=== PATIENT | female | born 1990 | race African-American/Black ===

== ENCOUNTER → 2019-11-08 | Outpatient (CLI) | payer OTHER ==
[~2019-11-08] MED LIST: OXYC-325 PO
--- NOTE | 2019-11-08 16:50 | RAD ---
EXAM: Obstetric sonogram. HISTORY: No heart tones. TECHNIQUE: Sonographic imaging of the pelvis was performed. COMPARISON: None. FINDINGS: The uterus measures 8.6 x 5.5 x 7.6 cm. There is an intrauterine gestational sac in expected position and with expected configuration. There is a single pole within the gestational sac measuring 4.4 mm in length. This corresponds with a gestational age of 6 weeks and 1 day. No cardiac activity is seen. The maternal ovaries are unremarkable. There is no pelvic free fluid. IMPRESSION: Single intrauterine fetus with an estimated gestational age based on crown-rump length of 6 weeks and 1 day. No cardiac activity is seen. This may be due to relative early gestational age. However, the crown-rump length is small for the size of the gestational sac. This favors early intrauterine demise/missed miscarriage. If no heart tones have been detected, short-term sonographic follow-up in a few days can be performed for confirmation. Electronically signed by: Sandy Batista MD (11/08/2019 4:47 PM) [facility]
== END | disposition home or self-care (01) ==
LOC: US 16:11
PROVIDERS: ATTEND Obstetrics & Gynecology
DX: O26.891 Other specified pregnancy related conditions, first trimester (principal); O02.81 Inappropriate change in quantitative human chorionic gonadotropin (hCG) in early pregnancy; Z3A.01 Less than 8 weeks gestation of pregnancy
CPT/HCPCS: 76801; 76817

== ENCOUNTER 2019-11-12 06:15 | Day surgery (SDC) | payer OTHER ==
[2019-11-12] MEDS: IV RINGERS,LACTATED 1000ML 1,000 ML IV SCH ×2 (06:56→09:45)
[2019-11-12] MEDS ORDERED: LIDOCAINE 2% PF 5 ML VIAL. ONE (06:57)
[2019-11-12] MEDS ORDERED: PROPOFOL 20 ML IV ONE (06:57)
[2019-11-12] MEDS ORDERED: DEXAMETHASONE SOD PHOS 4 MG/ML VIAL ONE (06:57)
[2019-11-12] MEDS ORDERED: ONDANSETRON PF 4 MG/2 ML VIAL. ONE (06:57)
[2019-11-12] MEDS ORDERED: fentaNYL PF VIAL 100 MCG/2 ML VIAL IV PRN (07:00)
[2019-11-12] MEDS ORDERED: LIDOCAINE 1% PF 2 ML VIAL. ID PRN (07:00)
[2019-11-12] MEDS ORDERED: MORPHINE SULFATE 2 MG/ML VIAL. IV PRN (07:00)
[2019-11-12] MEDS ORDERED: ONDANSETRON PF 4 MG/2 ML VIAL. IV PRN (07:00)
[2019-11-12] MEDS ORDERED: HYDROmorphone 2 MG/ML VIAL IV PRN (07:00)
[2019-11-12] MEDS ORDERED: OXYTOCIN 10 UNIT/ML VIAL. ONE (07:10)
[2019-11-12] MEDS ORDERED: VASOPRESSIN 20 UNIT/ML VIAL. ONE (07:11)
[2019-11-12] MEDS ORDERED: fentaNYL PF VIAL 100 MCG/2 ML VIAL ONE (07:45)
[2019-11-12] MEDS ORDERED: KETOROLAC 30 MG/ML VIAL. ONE (07:56)
[2019-11-12] MEDS ORDERED: SEVOFLURANE 16 TO 30 MINUTES. IH ONE (08:10)
[2019-11-12] MEDS ORDERED: PHENYLEPHRINE in 0.9% NACL PF 1 MG/10 ML SYRINGE. IV ONE (08:39)
[2019-11-12] MEDS ORDERED: SEVOFLURANE 31 TO 60 MINUTES. IH ONE (08:43)
[2019-11-12] MEDS ORDERED: SEVOFLURANE 61 TO 120 MINUTES. IH ONE (08:44)
[2019-11-12] MEDS ORDERED: miSOPROStol 200 MCG TABLET ONE ×2 (08:49→08:51)
[2019-11-12] MEDS ORDERED: miSOPROStol 200 MCG TABLET PR ONE ×2 (08:51)
--- NOTE | 2019-11-12 09:01 | PDOC ---
BRIEF OPERATIVE NOTE Date: Nov 12, 2019 Pre-Op Diagnosis 6 wk MAB Post-Op Diagnosis SAme Procedure Performed Suction D&C Surgeon Dr. Angeles Anesthesia Type: General Blood Loss 150 ml Specimens Obtained POC and blood products Findings POC Complications none Operative Note see dictation IVONNE ANGELES Jr, MD Nov 12, 2019 09:01
--- NOTE | 2019-11-12 09:03 | DISCH ---
DISCHARGE INSTRUCTIONS Condition on Discharge Condition on Discharge: Stable Activity After Discharge Activity Instructions for Disc: Activity as tolerated, Avoid exertion Lifting Instructions after Dis: No heavy lifting Driving Instructions after Dis: Do not drive today Diet after Discharge Diet after Discharge: Regular Contacting the DRAbhinav after DC Call your doctor for: Concerns you may have Follow-Up Follow up with: Dr. Angeles in 1 week. Pt. to remain off all work duties for 1 week. IVONNE ANGELES Jr, MD Nov 12, 2019 09:03
[2019-11-12] MEDS: PROCHLORPERAZINE 10 MG/2 ML VIAL. IV PRN ×2 (09:19→09:37)
[2019-11-12] MEDS: fentaNYL PF VIAL 100 MCG/2 ML VIAL IV PRN ×2 (09:20→09:37)
--- NOTE | 2019-11-12 09:28 | OP ---
DATE OF SURGERY: 11/12/2019 PREOPERATIVE DIAGNOSES: Six week missed . POSTOPERATIVE DIAGNOSIS: Six week missed . PROCEDURE: Suction D and C. SURGEON: Ivonne Angeles MD ANESTHESIA: GETA. ESTIMATED BLOOD LOSS: 150 mL. COMPLICATIONS: None. FINDINGS: Products of conception and blood products. SUMMARY: A 29-year-old 4, para 2, A1 at 6 weeks with missed , counseled on the risks, benefits and expectations of suction D and C and voiced clear understanding to proceed. DESCRIPTION OF PROCEDURE: The patient was taken to surgery suite and placed in dorsal lithotomy position. She was prepped with soapy suds water for prep due to SHELLFISH ALLERGY. After adequate anesthesia, weighted speculum and curved Monica placed vaginally. Anterior lip of the cervix grasped with single tooth tenaculum. The cervix was only able to be dilated up to size #6 Hegar dilators. There was a laceration on the cervix where the single tooth tenaculum was placed on the anterior lip as well as posterior lip of the cervix, which these were repaired with 2-0 Vicryl suture in [id number] manner. A suture was placed at 3 and 9 o'clock position as well to help stabilize the cervix as we proceeded with the curettage, removing tissue and then the suction using modified suction tip due to the narrow cervical canal to remove additional products of conception and blood products. Sharp curettage took place to a fine gritty surface was palpated circumferentially. Suction curette was passed once again. The cervix was once again visualized and was hemostatic. The weighted speculum and curved Monica were removed. The patient tolerated the procedure well and was taken to recovery room in stable condition. Sponge and needle count correct x 3. IVONNE ANGELES MD DR: LYDIA/josé JOB#: [id number] / [id number]
[2019-11-12] MEDS ORDERED: OXYC-325 PO (09:41)
[2019-11-12] MEDS ORDERED: oxyCODONE/APAP 5/325 1 TAB TABLET PO ONE ×2 (10:15)
[2019-11-12 10:35] VITALS: BP 113/68
--- NOTE | 2019-11-15 15:07 | PATHOLOGY ---
[facility] Accession Number: [id number] . 01 Material submitted: . product of conception - PRODUCTS OT CONCEPTION . 01 Clinical history: . Missed . . 02 Diagnosis: Uterine contents, suction D and C: - Products of conception, comprised of immature chorionic villi and segments of decidual tissue showing focal necrosis, acute inflammation, and hemorrhage. (JPM/db; 11/15/2019) [facility] 11/15/2019 1236 Local . 02 Electronically signed: . Néstor Shields MD, Pathologist NPI- [id number] . 01 Gross description: . Received in formalin labeled "Vera Holm, products of conception" is a 31 g, 6.8 x 6.2 x 1.8 cm aggregate of red-brown friable soft tissue fragments. No parts are identified. Informal Waiter/Waitress tissue is submitted in cassettes A1-A3. [place] [place] [facility] 11/14/2019 1118 Local . 02 Pathologist provided ICD-10: O02.1 . 02 CPT . 366364 Specimen Comment: A courtesy copy of this report has been sent to [phone] Specimen Comment: Report sent to Performed at: 01 [facility] [address], [place], [place] [id number] MD Jordy Seals MD Phone: [phone] Performed at: 02 [facility] [address], [place] [id number] MD Néstor Shields MD Phone: [phone]
== END 2019-11-12 11:24 | disposition home or self-care (01) ==
LOC: SURG 06:15
PROVIDERS: ATTEND Obstetrics & Gynecology
DX: O02.1 Missed abortion (principal); K21.9 Gastro-esophageal reflux disease without esophagitis; Z3A.01 Less than 8 weeks gestation of pregnancy; Z87.891 Personal history of nicotine dependence
CPT/HCPCS: 59820; 88305; A7015; J0690; J0780; J1100; J2001; J2370; J2405; J2704; J3010; J1885; J2590; J3490